=== PATIENT | female | born 1950 | race Caucasian/White ===

== ENCOUNTER 2021-03-22 10:52 | Outpatient (REF) | payer MEDICARE, OTHER, SELFPAY ==
--- NOTE | ~2021-03-22 | XR_ITS ---
EXAMINATION: XR CHEST CLINICAL INFORMATION: Acute sinusitis. COMPARISON: None TECHNIQUE: 2 views of the chest were obtained. FINDINGS: No significant abnormality is noted involving the heart, lungs, mediastinum, bony thorax or soft tissues. XR/XR chest 2V IMPRESSION: Unremarkable chest exam.
== END 2021-03-22 10:53 | disposition home or self-care (01) ==
LOC: HO.HMGCX 10:52
PROVIDERS: Visit Provider Physician Assistant Medical
DX: J01.90 Acute sinusitis, unspecified (principal)
CPT/HCPCS: 71046

== ENCOUNTER 2021-03-22 13:52 | Outpatient (REF) | payer MEDICARE, SELFPAY ==
[2021-03-22 14:51] LABS: Influenza A PCR NEGATIVE (Negative); Influenza B PCR NEGATIVE (Negative); Resp Syncy Virus RNA Qual PCR NEGATIVE (Negative); SARS COV2 PCR INHOUSE NEGATIVE (Negative)
== END 2021-03-22 13:53 | disposition home or self-care (01) ==
LOC: HO.LNP 13:52
PROVIDERS: Visit Provider Physician Assistant Medical
DX: J06.9 Acute upper respiratory infection, unspecified (principal)
CPT/HCPCS: 0241U

== ENCOUNTER 2021-04-19 10:47 | Outpatient (REF) | payer MEDICARE, SELFPAY ==
[2021-04-19 15:00] LABS: Influenza A PCR NEGATIVE (Negative); Influenza B PCR NEGATIVE (Negative); Resp Syncy Virus RNA Qual PCR NEGATIVE (Negative); SARS COV2 PCR INHOUSE POSITIVE (Negative)
== END 2021-04-19 10:48 | disposition home or self-care (01) ==
LOC: HO.LAB 10:47
PROVIDERS: Physician Assistant Medical; Visit Provider Internal Medicine
DX: Z20.822 Contact with and (suspected) exposure to COVID-19 (principal); R43.9 Unspecified disturbances of smell and taste
CPT/HCPCS: 0241U

== ENCOUNTER 2021-07-05 08:27 | Outpatient (REF) | payer MEDICARE, SELFPAY ==
--- NOTE | ~2021-07-05 | XR_ITS ---
EXAMINATION: XR CHEST CLINICAL INFORMATION: Acute respiratory infection COMPARISON: February 2021 TECHNIQUE: 2 views of the chest were obtained. FINDINGS: No significant abnormality is noted involving the heart, lungs, mediastinum, bony thorax or soft tissues. XR/XR chest 2V IMPRESSION: Unremarkable examination.
== END 2021-07-05 08:28 | disposition home or self-care (01) ==
LOC: HO.HMGCX 08:27
PROVIDERS: Visit Provider Internal Medicine
DX: J06.9 Acute upper respiratory infection, unspecified (principal)
CPT/HCPCS: 71046

== ENCOUNTER 2021-07-05 08:42 | Outpatient (REF) | payer MEDICARE, SELFPAY ==
[2021-07-05 09:15] LABS: Binax Now Covid-19 Ag Negative (Negative)
[2021-07-05 09:16] LABS: Binax Internal Control QC Valid
== END 2021-07-05 08:43 | disposition home or self-care (01) ==
LOC: HO.HMGCLDS 08:42
PROVIDERS: Visit Provider Internal Medicine
DX: Z13.89 Encounter for screening for other disorder (principal)

== ENCOUNTER 2024-03-13 09:04 | Outpatient (REF) | payer MEDICARE, SELFPAY ==
[2024-03-13 16:45] LABS: Influenza A PCR NEGATIVE (Negative); Influenza B PCR NEGATIVE (Negative); Resp Syncy Virus RNA Qual PCR NEGATIVE (Negative); SARS COV2 PCR INHOUSE NEGATIVE (Negative)
== END 2024-03-13 09:05 | disposition home or self-care (01) ==
LOC: HO.LAB 09:04
PROVIDERS: Visit Provider Physician Assistant
DX: J06.9 Acute upper respiratory infection, unspecified (principal); J44.1 Chronic obstructive pulmonary disease with (acute) exacerbation; R05.9 Cough, unspecified
CPT/HCPCS: 0241U; 71046; 94640; 99202

== ENCOUNTER 2024-03-13 09:04 | Outpatient (AMB) | payer MEDICARE, SELFPAY ==
--- NOTE | 2024-03-13 09:05 | MHC.OFFWIV ---
Intake Vital Signs 03/13/24 09:08 Height 5 ft 2 in Weight 137 lb BMI 25.1 BP 104/70 Blood Pressure Location Lt brachial Position Sitting Pulse 64 Pulse Source Pulse Oximeter Temp 98.4 F Temp Source Oral Pulse Oximetry (%) 96 Oxygen Delivery Method Room Air Intake Visit Reasons: EP Chest congestion, cough Intake Note: Patient here for chest congestion, cough and diarrhea that has been present since sunday. Patient Tobacco Use Status: Current everyday Tobacco user Allergies amoxicillin Allergy (Unknown, Verified 03/13/24 09:09) hard time taking med Do you need a note to return to daycare/school/sports/work: No HPI HPI Comments History of Present Illness Details The patient is a 73-year-old female presenting with a persistent cough and respiratory symptoms in preparation for a scheduled surgery for uterine cancer on March 31. The cough began around Sunday, with the patient describing it as uncontrollable and accompanied by yellow phlegm, nasal congestion, intermittently clogged ears, shortness of breath, and a tickling sensation in the throat. The patient denies having any significant fever but reports a sensation of fullness in the left ear and associated sinus pressure, indicating symptoms of sinusitis. The patient's medical history includes recently diagnosed uterine cancer, with planned surgical intervention. She also describes a history consistent with chronic obstructive pulmonary disease (COPD), for which she uses an albuterol inhaler and a nebulizer, although her previous medication had as of February 13. COPD exacerbation is characterized by an increased frequency of inhaler usage to every four hours. The patient reports a social circumstance of possible exposure to COVID-19 within her neighborhood and family, though she has not tested positive. Her past medical history also includes a severe episode of sepsis that reportedly nearly resulted in , leading to the initial discovery of uterine cancer following an appropriate workup at a different medical facility from her regular care. The patient additionally notes a long-term issue with incontinence that worsens with coughing. [facility] Social History Patient Tobacco Use Status: Current everyday Tobacco user Review of Systems Const All systems reviewed & are unremarkable except as noted in HPI and below Physical Exam Vital Signs: Last Vital Signs Temp 98.4 F 03/13/24 09:08 Pulse 64 03/13/24 09:08 BP 104/70 03/13/24 09:08 Pulse Ox 96 03/13/24 09:08 Oxygen Delivery Method Room Air 03/13/24 09:08 BMI result Body Mass Index 25.1 General: Cooperative, healthy appearing, comfortable and no acute distress Orientation/consciousness: Patient oriented x3 Limitations: Limited due to coughing and respiratory issues Head: Normal to inspection Ears: Hearing grossly normal bilaterally, external ears normal Nose: Normal external nose present, Normal nares present, nasal congestion present Face and sinus: Normal facial exam, sinus pain on the right side Mouth: Normal oral and palatal mucosa present and moist mucous membranes Throat: Yes tonsils normal, Yes uvula midline. Posterior oropharynx erythema Eyes: Appearance normal, both eyes and all related structures Neck: Normal visual inspection Respirtory: Clear to auscultation bilaterally but dim. Normal respiratory effort, able to speak in complete sentences, Actively coughing, no respiratory distress, not tachypneic, no tripod positioning and no use of accessory muscles Cardiovascular: Regular rate and rhythm. Normal S1 and S2 Skin: No rashes or lesions noted Neuro: Patient oriented x3 Extremities: Normal to inspection and Yes no clubbing, cyanosis or edema Office Procedures Nebulizer Treatment Nebulizer Treatment [id number]/[id number] RX initial, or Nebulizer Subsequent Treatment Office Meds ipratropium 0.5 mg-albuterol 3 mg (2.5 mg base)/3 mL nebulization soln Performing Provider: Elda Mueller PA-C Performing Location: [facility] [place] [facility] Administered by: Elda Mueller PA-C on 03/13/24 09:45 Dose Route Admin Location Dispensed Lot Number Expiration Date [facility] [employer] 3 mL inhalation 3 mL [id number] 06/20/25 21843-029-51 [employer] Assessment & Plan Assessment & Plan (1) Upper respiratory tract infection: Code(s): J06.9 - Acute upper respiratory infection, unspecified Qualifiers: URI type: unspecified URI Qualified Code(s): J06.9 - Acute upper respiratory infection, unspecified Plan: VSS, pt well appearing, lungs dim but clear. Ordered a chest x-ray to evaluate for any pneumonia or other lung-related pathologies. Recommended tests for potential infectious causes including influenza, COVID-19, and RSV. Provided a DuoNeb treatment during the visit to aid in bronchodilation and relief of respiratory symptoms. Prescribed tesalon pearls for symptomatic relief of the cough, particularly to use at night. (2) COPD exacerbation: Code(s): J44.1 - Chronic obstructive pulmonary disease with (acute) exacerbation Plan: 2. Chronic Obstructive Pulmonary Disease COPD: Prescription refills for albuterol inhaler and nebulizer solution sent to the patient's preferred pharmacy to ensure continued management of COPD symptoms. Patient was informed and verbally consented to the use of an ambient scribe for clinic note documentation during this visit Orders: Orders SARS-CoV2/FLU/RSV Today J06.9 - Acute upper respiratory infection, unspecified AMB Nebulizer Treatment Today J06.9 - Acute upper respiratory infection, unspecified, J44.1 - Chronic obstructive pulmonary disease with (acute) exacerbation XR chest 2V Today R05.9 - Cough, unspecified Medications: New benzonatate 200 mg PO TID PRN 14 caps 0RF cough Changed From albuterol sulfate 90 mcg/actuation (ProAir HFA) 2 puffs inhalation QID PRN 8.5 grams 1RF wheezing To albuterol sulfate 90 mcg/actuation 2 puffs inhalation QID PRN 8.5 grams 1RF wheezing Refilled albuterol sulfate 2.5 mg (3 mL) inhalation Q4-6H PRN 90 mL 0RF shortness of breath or wheezing Coding Level of Care Code New Pt Level 4 (78649) Diagnoses Upper respiratory tract infection, unspecified type J06.9 URI type: unspecified URI COPD exacerbation J44.1 CPT Codes Nebulizer Treatment - Nebulizer Treatment, initial or subsequent: [id number]/[id number] RX initial, or Nebulizer Subsequent Treatment ([id number])
[2024-03-13 09:08] VITALS: BP 104/70; PULSE 64; TEMP 36.9; O2SAT 96; BMI 25.1
== END 2024-03-13 11:17 | disposition home or self-care (01) ==
PROVIDERS: Visit Provider Physician Assistant
DX: J06.9 Acute upper respiratory infection, unspecified (principal); J44.1 Chronic obstructive pulmonary disease with (acute) exacerbation

== ENCOUNTER 2024-03-13 09:52 | Outpatient (REF) | payer MEDICARE, SELFPAY ==
--- NOTE | ~2024-03-13 | XR_ITS ---
EXAMINATION: XR CHEST CLINICAL INFORMATION: R05.9 - Cough, unspecified COMPARISON: Chest radiograph 07/05/2021. TECHNIQUE: 2 views of the chest were obtained. FINDINGS: The lungs are adequately expanded. No focal consolidation. No pleural effusions or pneumothorax. The cardiac mediastinal silhouette is within normal limits. Aortic calcifications. No acute osseous abnormality. XR/XR chest 2V IMPRESSION: No acute pulmonary disease. Electronically signed by: Josemanuel Israel MD 03/13/2024 12:16 PM [facility]
== END 2024-03-13 09:53 | disposition home or self-care (01) ==
LOC: HO.HMGCX 09:52
PROVIDERS: Visit Provider Physician Assistant
DX: Z13.89 Encounter for screening for other disorder (principal)
CPT/HCPCS: 71046